=== PATIENT | female | born 1975 | race Two or more races ===

== ENCOUNTER 2023-01-23 16:51 | Outpatient (CLI) | payer OTHER | END 2023-01-23 16:59 | disposition home or self-care (01) | LOC: RAD 16:51 | PROVIDERS: ATTEND Orthopaedic Surgery | DX: S92.511A Displaced fracture of proximal phalanx of right lesser toe(s), initial encounter for closed fracture (principal) ==

== ENCOUNTER 2023-03-03 09:26 | Outpatient (CLI) | payer OTHER | END 2023-03-03 09:40 | disposition home or self-care (01) | LOC: RAD 09:26 | PROVIDERS: ATTEND Orthopaedic Surgery | DX: S92.511A Displaced fracture of proximal phalanx of right lesser toe(s), initial encounter for closed fracture (principal) ==

== ENCOUNTER → 2023-05-27 | Emergency (ER) | payer OTHER ==
[~2023-05-27] VITALS: Ht 172.7 cm; Wt 72.6 kg
== END | disposition left against medical advice (07) ==
LOC: ER 16:38
DX: Z53.21 Procedure and treatment not carried out due to patient leaving prior to being seen by health care provider (principal)

== ENCOUNTER 2023-09-22 10:04 | Outpatient (CLI) | payer OTHER | END 2023-09-22 10:10 | disposition home or self-care (01) | LOC: RAD 10:04 | PROVIDERS: ATTEND Orthopaedic Surgery | DX: M79.675 Pain in left toe(s) (principal) ==